=== PATIENT | female | born 1990 | race African-American/Black ===

== ENCOUNTER 2020-05-07 12:37 | Emergency (ER) | payer MEDICAID, OTHER, SELFPAY ==
[2020-05-07 22:18] LABS: SARS-CoV-2 MS2 Positive; SARS-CoV-2 N Gene Negative; SARS-CoV-2 S Gene Negative; SARS-CoV-2 by NAA Not Detected (NotDetected); SARS-CoV-2 orf1ab Negative
== END 2020-05-07 13:37 | disposition home or self-care (01) ==
LOC: ERS 12:37
DX: R05 Cough (principal); Z20.828 Contact with and (suspected) exposure to other viral communicable diseases
CPT/HCPCS: 87635; 99283; U0003

== ENCOUNTER 2020-07-26 12:01 | Emergency (ER) | payer MEDICAID, OTHER ==
--- NOTE | 2020-07-26 13:09 | CT ---
CT CERVICAL SPINE WITH CORONAL AND SAGITTAL REFORMATIONS AND NO IV CONTRAST: HISTORY: Left neck and left arm pain, left arm numbness. Stiffness in the neck, FINDINGS: There is loss of cervical lordosis with mild reversal. Degenerative changes are seen most prominent at C3-4 level No fracture, subluxation or facet malalignment is identified. No prevertebral soft tissue swelling is apparent. The visualized lung apices are unremarkable. IMPRESSION: Cervical spondylosis. No CT evidence for fracture or traumatic subluxation.
[2020-07-26] MEDS ORDERED: Ketorolac Tromethamine 30 MG/ML VIAL ONE (13:24)
== END 2020-07-26 13:53 | disposition home or self-care (01) ==
LOC: ERS 12:01
DX: M54.12 Radiculopathy, cervical region (principal); M62.838 Other muscle spasm; Z79.899 Other long term (current) drug therapy
CPT/HCPCS: 72125; 96372; J1885